=== PATIENT | male | born 1985 | race Caucasian/White ===

== ENCOUNTER 2016-11-06 11:49 | Emergency (ER) | payer OTHER ==
[~2016-11-06] VITALS: Ht 185.4 cm; Wt 146.4 kg
[~2016-11-06 11:49] MED LIST: GABA-113 PO; OXYC-57 PO; ZNF4 PO
[2016-11-06 11:53] VITALS: TEMP 37.3; Ht 185.4 cm; Wt 146.4 kg
--- NOTE | 2016-11-06 12:31 | DIAGNOSTIC IMAGING REPORT ---
LEFT KNEE 3 VIEWS CLINICAL HISTORY: Left knee pain s/p ascending stairs pain COMPARISON: None. DISCUSSION: The bones and joint spaces appear intact. There is no evidence of fracture, dislocation or bony disease. There is no evidence for soft tissue swelling. IMPRESSION: Negative study. The above report was generated using voice recognition software. It may contain grammatical, syntax or spelling errors. Electronically signed by: Reagan Diaz M.D. 11/06/2016 12:30 PM Dictated Date/Time: 11/06/2016 12:30 PM
[2016-11-06] MEDS ORDERED: HYDR-5688 PO (13:07)
[2016-11-06] MEDS ORDERED: KETOROLAC TROMETHAMINE 60 MG/2 ML VIAL IM STA (13:07)
--- NOTE | 2016-11-06 13:08 | EMERGENCY ROOM VISIT NOTE ---
History First contact with patient: 12:00 Chief Complaint: KNEEPAIN Stated Complaint: KNEE PAIN History of Present Illness The patient is a 31 year old male who presents to the Emergency Room via private vehicle with complaints of "knee pain". The patient states that today while at work, he was a sending a flight of steps, when he developed left knee pain. He states that the knee did not give out, but there is a sharp shooting pain in the medial aspect of his left knee joint. He notes the pain is worse with bending, and using stairs. He rates the pain as a 3/10 at rest, and with weightbearing a 5/10. The pain is even worse with ascending a flight of steps. He denies any history of septic joint, fevers, chills, numbness or tingling in the leg. Review of Systems A complete 6-point Review of Systems was discussed with the patient, with pertinent positives and negatives listed in the History of Present Illness. All remaining Review of Systems questions can be considered negative unless otherwise specified. Past Medical/Surgical History Medical Problems: (1) Lumbar stenosis Surgical Problems: (1) Previous back surgery Social History Smoking Status: Current Some Day Smoker Alcohol Use: occasionally Marital Status: Occupation Status: employed Current/Historical Medications Scheduled PRN Hydrocodone/Acetaminophen 5MG/325MG ([place] 5MG/325MG), 1-2 TABLET PO Q6 PRN for Pain Physical Exam Vital Signs Date Time Temp Pulse Resp B/P (MAP) Pulse Ox O2 Delivery O2 Flow Rate FiO2 11/06/16 13:17 81 18 149/88 96 Room Air 11/06/16 11:53 37.3 92 18 139/91 94 Room Air Physical Exam VITAL SIGNS - Vital signs and nursing notes were reviewed. Patient is afebrile , hypertensive at 139/91, non-tachycardic and is saturating on room air at 94%. GENERAL -31-year-old male appearing his stated age who is in no acute distress. Communicates well with provider and answers questions appropriately. SKIN - Without rashes. Skin overlying the left knee is unremarkable. EXTREMITIES - No clubbing or peripheral cyanosis. No pretibial edema present. There is tenderness appreciated with the anterior drawer test. There is no laxity noted. Valgus and varus stress to the knee joint illicit medial pain. There is no palpable bony deformity. He is neurovascularly intact in this region. +5/5 strength noted in UE/LE bilaterally. The skin is not red, or excessively warm compared to the other knee. Medical Decision & Procedures ER Provider Diagnostic Interpretation: LEFT KNEE 3 VIEWS CLINICAL HISTORY: Left knee pain s/p ascending stairs pain COMPARISON: None. DISCUSSION: The bones and joint spaces appear intact. There is no evidence of fracture, dislocation or bony disease. There is no evidence for soft tissue swelling. IMPRESSION: Negative study. The above report was generated using voice recognition software. It may contain grammatical, syntax or spelling errors. Electronically signed by: Reagan Diaz M.D. 11/06/2016 12:30 PM Dictated Date/Time: 11/06/2016 12:30 PM Medications Administered Medications (Trade) Dose Ordered Sig/Edel Route Start Time Stop Time Status Last Admin Dose Admin Ketorolac Tromethamine (Toradol Inj) 60 mg NOW STAT IM 11/06/16 13:07 11/06/16 13:09 DC 11/06/16 13:17 60 MG Medical Decision Patient was seen and evaluated as above. After obtaining a thorough history and physical examination radiographs obtained the affected region. Results as above. Negative knee radiograph. I suspect the patient is likely experiencing either a medial meniscus injury, or potentially surrounding ligaments. I do not suspect any bony abnormality. He is well on exam. His blood pressure was slightly elevated, however I believe that was secondary to the situation. There is no fever, or evidence of septic joint. Because this is work-related, it is recommended he follows up with workman's compensation as well as orthopedic surgeon. He will be conservative management of the emergency department here today with crutches to be nonweightbearing as well as a knee immobilizer. For his pain here today prior to departure he did request pain medication, therefore was given Toradol 60 mg IM. He did have ibuprofen earlier today, however I do believe that the time elapsed is appropriate. He denied any kidney problems. He was given a short-term prescription of pain medication. He was educated upon worrisome symptoms in which to return, had questions or discharge, and was discharged home in good condition. In the evaluation and treatment of this patient, the following differential diagnoses were considered: Patellar Fracture, Tibial Plateau Fracture, Distal Femur Fracture, ACL Injury, PCL Injury, Collateral Ligament Injury, Pes Anserine Bursitis, Maison[place]uve Fracture. [facility] Drug Monitoring Program Search Results: patient reviewed within database, no issues identified Medication Reconcilliation Current Medication List: was personally reviewed by me Blood Pressure Screening Patient's blood pressure: Elevated blood pressure Blood pressure disposition: Elevated BP felt to be situational Impression Primary Impression: Knee pain Departure Information Dispostion Home / Self-Care Condition GOOD Prescriptions Hydrocodone/Acetaminophen 5MG/325MG ([place] 5MG/325MG) Tab 1-2 TABLET PO Q6 Y for Pain, #18 TAB For Initial Treatment Prov: Remington Núñez PA-C 11/06/16 Referrals No Doctor, Assigned (PCP) Doroteo Enriquez D.O. Patient Instructions [facility] Additional Instructions You have been treated in the Emergency Department for Knee Pain. You have been prescribed norco to be used for pain control. This is a narcotic medication. You cannot drive or consume alcohol while on this medicine. This medicine should only be used for pain that cannot be controlled with over-the- counter pain medicines. For pain control, you can use the following [id number] medicines (if >12 yo): NO TYLENOL WITH THE NORCO!! - Regular strength (200 mg/tab) Advil (ibuprofen) 1-2 tabs every 4-6 hours as needed. Do not exceed a dose of 3200 mg per day. If this is a recent injury (<24 hrs), ice can be applied to the area of pain for the first 3 days to help decrease pain and inflammation. Ice massages can be performed by freezing water in a paper cup, peeling back the cup to expose the ice and then massaging over the affected area. You have been provided the number for an Orthopaedic Surgeon. You should call this number as soon as possible to establish a follow-up visit from today's Emergency Department visit. Keep the knee brace in place until cleared by Orthopedics. Use the crutches you have been provided to keep ALL weight off of the knee until weight bearing is tolerable. Please also follow up with your Workmen's Compensation individual. Return to the Emergency Department if your current symptoms worsen despite treatment course outlined above.
[2016-11-06 13:17] VITALS: BP 149/88; PULSE 81; O2SAT 96
== END 2016-11-06 13:27 | disposition home or self-care (01) ==
LOC: C.EDB 11:51 → C.EDD 13:27
DX: M25.562 Pain in left knee (principal); M48.06 Spinal stenosis, lumbar region; F17.200 Nicotine dependence, unspecified, uncomplicated